=== PATIENT | male | born 1950 | race Caucasian/White ===

== ENCOUNTER → 2019-05-09 | Outpatient (CLI) | payer MEDICARE, OTHER ==
--- NOTE | 2019-05-09 16:37 | KCIC ---
MRI study of the right knee without contrast Clinical indications: Right knee pain for many years. As located lateral swelling and locking. COMPARISON: Radiographic study of the right knee dated April 10, 2019. TECHNIQUE: Noncontrast MRI sequences of the right knee were performed in all 3 planes. FINDINGS: The anterior and posterior cruciate ligaments are intact. The quadriceps and patellar tendons are intact. There is an inferior articular surface tear of the posterior horn and body and anterior horn of the lateral meniscus. No significant truncation of the lateral meniscus is evident. No articular surface tear of the medial meniscus is seen. The medial collateral ligament is intact and no meniscocapsular separation is seen. The lateral collateral ligament complex and iliotibial band and popliteus tendon are intact. No posterior lateral corner injury is seen. No marrow infiltrative process or fracture is seen. There is focal moderate chondromalacia of the weightbearing portion of the medial femoral condyle. No subchondral marrow signal abnormality is seen here. There is mild degenerative spurring of the medial tibiofemoral joint compartment. There is mild chondromalacia of the lateral tibial plateau without articular cartilage defect. There is mild degenerative spurring of the lateral tibial femoral joint compartment. There is a degenerative cyst of the anterior lateral aspect of the lateral tibial plateau. The patella is normally aligned. There is moderate chondromalacia with subchondral cyst formation involving the medial aspect of the medial patellar facet. There is severe chondromalacia with loss of articular cartilage of the central trochlear groove and lateral aspect of the trochlea. There is moderate subchondral stress reaction bone marrow edema present here. The medial and lateral retinacular ligaments are intact. No distended Arrington's cyst is seen. 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 No muscle edema is evident. No significant knee joint effusion is seen. No loose body is seen. 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 Moderate chondromalacia of the medial patellar facet. Moderate chondromalacia of the weightbearing portion of the medial femoral condyle. Mild chondromalacia of the lateral tibial plateau. Degenerative cyst of the lateral tibial plateau. There is mild degenerative spurring of the medial and lateral tibial femoral joint compartments. Inferior articular surface tear of the lateral meniscus. Electronically signed by: Aaron Gil MD (05/09/2019 4:35 PM) [id number]
== END ==
LOC: KCIC MRI 13:13
PROVIDERS: ATTEND Orthopaedic Surgery Sports Medicine
DX: S83.281A Other tear of lateral meniscus, current injury, right knee, initial encounter (principal); M22.41 Chondromalacia patellae, right knee; R60.1 Generalized edema; X58.XXXA Exposure to other specified factors, initial encounter; Y93.89 Activity, other specified; Y92.89 Other specified places as the place of occurrence of the external cause; Y99.8 Other external cause status
CPT/HCPCS: 73721